=== PATIENT | female | born 1945 | race Caucasian/White ===

== ENCOUNTER 2022-11-26 14:22 | Outpatient (CLI) | payer MEDICARE, BC, SELFPAY ==
--- OUTSIDE RECORDS SUMMARY | 2022-11-26 14:26 | XMS_ITS | Continuity of Care Document ---
Author Name Unknown Organization [facility] Address [address] [place] [address] Phone Care Team Providers Care Internet Assessor Name Role Phone Shlomo EASLEY, Antwon Unavailable Unavailable Allergies, Adverse Reactions, Alerts Substance Reaction Status Criticality POTASSIUM CLAVULANATE Active No Inf ormation AMOXICILLIN TRIHYDRATE Active No In formation venom-honey bee Active No Informati on morphine Active No Information Medications Medication Instructions Dosage Effective Dates (start - stop) Status Comments spironolactone 100 mg tablet take 1 tablet (100MG) by oral route every day 100 MG - Active LIPITOR (unknown strength) Not Available - Active LASIX (unknown strength) Not Available - Active KEPPRA (unknown strength) Not Available - Active WARFARIN SODIUM (unknown strength) Not Available - Active TIROSINT (unknown strength) Not Available - Active MECLIZINE HCL (unknown strength) Not Available - Active IMITREX (unknown strength) Not Available - Active OMEPRAZOLE (unknown strength) Not Available - Active Procedures Procedure Date OFFICE/OUTPATIENT VISIT EST Video Office/Outpatient Visit,New, Mod 2021 X-Ray Exam Of Neck Spine, 4+ Views Office/Outpatient Visit,Est, Mod 2012 X-Ray Exam Of Neck Spine2-3 Views Postop Followup Visit X-Ray Exam Of Neck Spine2-3 Views Neck Spine Fusion (Cerv,Below C2) Bilat. Neck Spine Disk Surgery/Decompres s Insert Spine Fixation, Posterior 2012 Apply/Remove Bone Fixation Device Autograft, Spine Surgery, Local 013 Allograft, Spine Surg, Morselized Pa Assist Neck Spine Fusion (Cerv,Below C2) Pa Assist Cervical Spine Disk Surgery/De compress Pa Assist Insert Spine Fixation, Posteri or Doc Antibio Order B/4 Surg Doc Antibio Given B/4 Surg Doc Antibiotics Were Given Within 4 Hour s To Incis Doc Order To Discontinue Within 24 Hours Surgical No Documented Order No Reason Given Office/Outpatient Visit,Est, Mod 2011 Office/Outpatient Visit,New, Mod 2011 X-Ray Exam Of Neck Spine2-3 Views Postop followup visit X-ray exam lower spine 2-3 views 2006 Postop followup visit X-ray exam lower spine 2-3 views 2006 Postop followup visit X-ray exam lower spine 2-3 views 2006 Pre Op Office/outpatient visit, 007 Advance Directives Directive Yes / No Effective Date File Name No Information Encounters Encounter Description Practice Location Reason(s) For Visit Diagnoses Date Provider Providers Copied on Encounter [facility], [address] [place] [address], [id number], tel:[phone] [facility] No Information May-0 - 2 Shlomo Kapoor. [facility], [address] [place] [address], [address], [place], [place], [id number], [place]. tel:[phone] OFFICE/OUTPA TIENT VISIT EST Video [facility], [address] [place] [address], [id number], [place] tel:[phone] [facility] No Information May-0 - 2 Alexis Campos. [facility], [address] [place] [address], [address], [place], [address], . tel:[phone] Referring Provider: Andres Mahoney, [facility] [address], [address], [place], [address]. tel:[phone] Office/Outpa tient Visit,New, Mod [facility], [address], [place], [place], [id number], [place] tel:[phone] [facility] Spondylolist hesis, cervical region Apr- 0202 2 Alexis Campos. [facility], [address], [address], [place], [address], [place]. tel:[phone] Referring Provider: Andres Mahoney, [facility] [address], [address], [place], [address]. tel:[phone] Office/Outpa tient Visit,Est, Mod Z [facility], [address], [place], [address], [place] tel:[phone] [facility] No Information 6201 3 Transfeldt Ensor. [facility], [address], [place], [place], [id number], [place]. tel:[phone] Referring Provider: Natasha Michael, [address], [address]. tel:[phone] Z [facility], [address], [place], [address], [place] tel:[phone] [facility] No Information 2-201 3 Transfeldt Ensor. [facility], [address], [address], [place], [place], [id number], [place]. tel:[phone] Referring Provider: Natasha Michael, [address], [address]. tel:[phone] Z [facility], [address], [place], [address], [place] tel:[phone] [facility] No Information Feb-1 2-201 3 Eckroth Zelalem. [address], [place], [place], [id number], [place]. tel:[phone] Z [facility], [address] [place] [address], [place], [address], [place] tel:[phone] [facility] No Information 0 4-201 3 Transfeldt Ensor. [facility], [address] [place] [address], [facility] [address], [place], [id number], [place]. tel:[phone] Referring Provider: Natasha Michael, [address], [address]. tel:[phone] Office/Outpa tient Visit,Est, Mod Z [facility], [address] [place] [address], [address], [place] tel:[phone] [facility] No Information 0 2 Transfeldt Ensor. [facility], [address] [place] [address], [facility] [address], [place], [id number], [place]. tel:[phone] Referring Provider: Natasha Michael, [address], [address]. tel:[phone] Office/Outpa tient Visit,New, Mod Z [facility], [address] [place] [address], [address], [place] tel:[phone] [facility] No Information 2 Transfeldt Ensor. [facility], [address] [place] [address], [facility] [address], [place], [id number], [place]. tel:[phone] Referring Provider: Natasha Michael, [address], [address]. tel:[phone] Z [facility], [address] [place] [address], [address], [place] tel:[phone] [facility] Arthropathy/ Arthritis 5201 2 Transfeldt Ensor. [facility], [address] [place] [address], [id number], [place]. tel:[phone] [facility], [address] [place] [address], [address], [place] tel:[phone] [facility] No Information 7 Transfeldt Ensor. [facility], [address] [place] [address], [address], [id number], [place]. tel:[phone] Referring Provider: Natasha Michael, [address], [address]. tel:[phone] [facility], [address] [place] [address], [address], [place] tel:[phone] [facility] No Information 7 Eckroth Zelalem. [address], [id number], [place]. tel:[phone] Referring Provider: Natasha Michael, [address], [address]. tel:[phone] [facility], [address] [place] [address], [address], [place] tel:[phone] [facility] No Information 7 Ecbenson Masterson. [address], [id number], [place]. tel:[phone] Referring Provider: Natasha Michael, [address], [address]. tel:[phone] Pre Op Office/outpa tient visit, Z [facility], [address] [place] [address], [address], [place] tel:[phone] [facility] No Information 7 Transfeldt Ensor. [facility], [address] [place] [address], [address], [id number], [place]. tel:[phone] Referring Provider: Natasha Michael, [address] [place], [address]. tel:[phone] Family History Family Member Type Diagnosis Age At Onset No Information Payers Payer name Insurance type Covered alliance party ID [place]ary([place] [id number] Medicare Kael MALONE [id number] 1 Social History Type Description Quantity Date Captured Comments Sex Female Smoking Status No Information Chief Complaint And Reason For Visit No Information Reason For Referral Reason For Referral No Information Plan Of Treatment Date Type Action Status Future Order: Radiology Order MR I-Cervical (MRI), Ordered on: Ordered Future Order: Radiology Order MR I-Open, Upright Or Sitting (MRIOPEN), Ordered on: Ordered Future Order: Radiology Order AP Lateral Cervical (APlatcerv), Ordered on: Ordered Future Order: Radiology Order F/ E Cervical (F/Ecervical), Ordered on: Ordered History Of Present Illness Encounter Date Complaint History Of Prese nt Illness No Information Functional Status Date Functional Assessmen t No Information Instructions Date Instruction Additional Infor mation No Information Assessments Type Assessment Date No Information Patient Care Teams Name Effective Dates (start - stop) Status Members No Information
--- OUTSIDE RECORDS SUMMARY | 2022-11-26 14:27 | XMS_ITS | Continuity of Care Document ---
Author Name Unknown Organization [facility] Address [address] [place] [address] Phone Care Team Providers Care Car Repair Supervisor Name Role Phone Zeus Seay MD Unavailable Unavailable Medications Medication Instructions Dosage Effective Dates (start - stop) Status Comments nabumetone 750 mg tablet take 1 tablet by oral route 2 times every day 750 MG - Active Feldene 20 mg capsule take 1 capsule (20MG) by oral route every day - Active prednisone 5 mg tablet take 1 tablet (5MG) by oral route every day 5 MG - Active benzonatate 100 mg capsule take 1 capsule (100MG) by oral route as needed for cough - Active triamcinolone acetonide 0.1 % Topical Ointment apply by topical route to the affected area as directed - Active mupirocin 2 % Topical Ointment apply by topical route as directed - Active Premarin 0.625 mg/gram Vaginal Cream use as needed - Active Prilosec 20 mg capsule,delayed release take 1 capsule (20MG) by oral route every day before a meal - Active Imitrex 25 mg tablet Use as needed - Activ e meclizine 12.5 mg tablet take as needed - Active spironolactone 100 mg tablet take 1 tablet (100MG) by oral route every morning 100 MG - Active Claritin 10 mg tablet take 1 tablet (10MG) by oral route every day 10 MG - Active CALCIO RESHMA (unknown strength) 1200mg daily Not Available - Active Vitamin D3 5,000 unit tablet take 1 Tablet by Oral route every day 1 Tablet - Active multivitamin tablet take 1 tablet by oral route every day with food - Active GLUCOSAMINE SULFATE (unknown strength) take one daily Not Available - Active levothyroxine 175 mcg tablet take 1 tablet (175MCG) by oral route every day 175 MCG - Active nabumetone 750 mg tablet take 1 tablet by oral route 2 times every day 750 MG - No Longer Active Procedures Procedure Date Office/Outpatient Visit, Est Office/Outpatient Visit, New Routine Venipuncture Specimen Handling Complete Cbc WAuto Diff Wbc Rbc Sed Rate, Nonautomated CReactive Protein Advance Directives Directive Yes / No Effective Date File Name No Information Encounters Encounter Description Practice Location Reason(s) For Visit Diagnoses Date Provider Providers Copied on Encounter [facility] , [address], [place], [address], [place] tel:[phone] [facility] , No Information 5 Dawood Schulz. [facility] [address], [place], [address], [place]. tel:[phone] [facility] , [address], [place], [address], [place] tel:[phone] [facility] , No Information 4 Dawood Schulz. [facility] [address], [place], [address], [place]. tel:[phone] [facility] , [address], [place], [address], [place] tel:[phone] [facility] , No Information 4 Dawood Schulz. [facility] [address], [place], [address], [place]. tel:[phone] Office/Outpa tient Visit, Est [facility] , [address], [place], [address], [place] tel:[phone] [facility] , Osteoarthrit is (chief complaint) Osteoarthros is, generalized, involving unspecified siteLONG-TER M (CURRENT) USE OF NON-STEROIDA L ANTI-INFLAMM ATORIESUnspe cified sleep disturbance July-0 7 4 Dawood Schulz. [facility] [address], [place], [address], [place]. tel:[phone] Referring Provider: Zeus Garrido, [facility] [address], [place], [address]. tel:[phone] [facility] , [address], [place], [address], [place] tel:[phone] [facility] , No Information 0 4 Dawood Schulz. [facility] [address], [place], [address], [place]. tel:[phone] Office/Outpa tient Visit, New [facility] , [address], [place], [address], [place] tel:[phone] [facility] Hypothyroidi smGERDMigrai neHirsutismU nspecified polyarthropa thy or polyarthriti s, site unspecifiedO steoarthrosi s, generalized, involving unspecified siteCarpal Tunnel Syndrome 0 4 4 Dawood Schulz. [facility] [address], [place], [address], [place]. tel:[phone] Referring Provider: Zeus Garrido, [facility] [address], [place], [address]. tel:[phone] Family History Family Member Type Diagnosis Age At Onset No Information Payers Payer name Insurance type Covered libertarian ID Selena mary(s) Medicare [place] [id number] [facility] [id number] Social History Type Description Quantity Date Captured Comments Alcohol Use Details Unknown Caffeine Use Details Unknown Tobacco Use Status No Information Smoking Status No Information Sex Female Chief Complaint And Reason For Visit No Information Reason For Referral Reason For Referral No Information History Of Present Illness Encounter Date Complaint History Of Prese nt Illness No Information Functional Status Date Functional Assessmen t No Information Instructions Date Instruction Additional Infor mation No Information Assessments Type Assessment Date No Information Patient Care Teams Name Effective Dates (start - stop) Status Members No Information
[2022-11-26 22:25] LABS: SARS PCR* Negative SARS-CoV-2 (Negative)
== END 2022-11-26 14:23 | disposition home or self-care (01) ==
PROVIDERS: PCP Family Medicine; Visit Provider Nurse Practitioner Family
DX: R05.9 Cough, unspecified (principal); R60.0 Localized edema; I48.91 Unspecified atrial fibrillation; R06.00 Dyspnea, unspecified; Z51.81 Encounter for therapeutic drug level monitoring; Z79.01 Long term (current) use of anticoagulants; R51.9 Headache, unspecified; R50.9 Fever, unspecified; E03.9 Hypothyroidism, unspecified; E78.5 Hyperlipidemia, unspecified; G40.909 Epilepsy, unspecified, not intractable, without status epilepticus; Z11.52 Encounter for screening for COVID-19
CPT/HCPCS: 80048; 83880; 85025; 87635